=== PATIENT | female | born 1970 | race American Indian/Alaskan Native ===

== ENCOUNTER 2016-08-27 16:13 | Emergency (ER) | payer OTHER | END 2016-08-27 18:30 | disposition left against medical advice (07) | LOC: ED 16:13 | DX: R07.9 Chest pain, unspecified (principal); M54.6 Pain in thoracic spine; Z88.0 Allergy status to penicillin; Z53.21 Procedure and treatment not carried out due to patient leaving prior to being seen by health care provider ==

== ENCOUNTER 2018-01-22 14:33 | Inpatient (IN) | payer OTHER ==
[2018-01-22] MEDS ORDERED: ASPIRIN PO ONE (14:49)
[2018-01-22 15:39] LABS: Basophils # (Auto) 0.1 K/mm3 (0.0-0.1); Basophils % (Auto) 0.8 % (0.0-1.8); Eosinophils % (Auto) 0.6 % (0.0-4.3); Hematocrit 33.1 % (30.3-42.9); Hemoglobin 10.3 gm/dl (10.1-14.3); Lymphocytes # (Auto) 2.9 K/mm3 (1.2-5.4); Mean Corpuscular HGB Conc 31 % (30-34); Mean Corpuscular Volume 76 fl (79-97); Monocytes # (Auto) 0.5 K/mm3 (0.0-0.8); Monocytes % (Auto) 6.9 % (0.0-7.3); Platelet Count 480 K/mm3 (140-440); Red Blood Count 4.37 M/mm3 (3.65-5.03)
[2018-01-22 15:44] LABS: Mean Corpuscular Hemoglobin 24 pg (28-32); Red Cell Distribution Width 21.6 % (13.2-15.2)
--- NOTE | 2018-01-22 15:44 | Emergency Department Report ---
ED Chest Pain HPI - General Chief Complaint: Chest Pain Stated Complaint: CHEST PAIN AND BLOOD PRESSURE HIGH Source: patient Mode of arrival: Ambulatory Limitations: No Limitations - History of Present Illness Initial Comments: Mrs. Hunt is a 47-year-old female with history of hypertension. She has not had access to primary care in several years. Consequently she has not taking antihypertensive medication for 2 years. She has had chest pain over the last 6 days beginning on Tuesday while at work. Chest pain radiating to the left neck. She has bilateral hand tingling. She has blurry vision. Extensive family history of heart disease including father and grandmother. Denies palpitations. No shortness of breath. Episodes last approximately 4-5 minutes especially while she is working. Sharp in nature. The pain radiates to her left neck. She is evaluated at the [facility]. Systolic blood pressure approximately 170 mm HG. She has used home blood pressure monitoring cuff. Systolic blood pressures range from 140 to 170 mm Hg. S MD Complaint: chest pain -: days(s) (6) Onset: during rest, during exertion Pain Location: substernal, left chest Pain Radiation: neck Severity: moderate Quality: sharp Consistency: intermittent Improves With: rest Other Symptoms: other (bilateral hand tingling). denies: fever, syncope, rash, leg swelling Treatments Prior to Arrival: aspirin (earlier this week) - Related Data Previous Rx's Medication Instructions Recorded Last Taken Type Acetaminophen/Codeine 1 tab PO Q6H PRN #15 tab 08/23/14 Unknown Rx [Acetaminophen-Codeine #3 TAB] Butalb/Acetamin/Caff 50-325-40 1 each PO Q4H PRN #14 tablet 03/25/15 Unknown Rx [Fioricet] Meclizine [Antivert] 25 mg PO TID PRN #30 tablet 03/25/15 Unknown Rx Metoclopramide HCl [Reglan TAB] 5 mg PO TID PRN #10 tablet 03/25/15 Unknown Rx Allergies Allergy/AdvReac Type Severity Reaction Status Date / Time Penicillins Allergy Hives Verified 01/02/14 09:33 Heart Score - HEART Score History: Highly suspicious EKG: Normal Age: 45-65 Risk factors: 1-2 risk factors Troponin: < normal limit HEART Score: 4 ED Review of Systems ROS: Stated complaint: CHEST PAIN AND BLOOD PRESSURE HIGH Other details as noted in HPI Comment: All other systems reviewed and negative Constitutional: denies: fever, malaise ENT: denies: ear pain Respiratory: cough Cardiovascular: chest pain ED Past Medical Hx - Past Medical History Hx Hypertension: Yes - Surgical History Additional Surgical History: myomectomy - Family History Family history: CAD/SC (father grandmother) - Social History Smoking Status: Never Smoker Substance Use Type: None - Medications Home Medications: Home Medications Medication Instructions Recorded Confirmed Last Taken Type Acetaminophen/Codeine 1 tab PO Q6H PRN #15 tab 08/23/14 Unknown Rx [Acetaminophen-Codeine #3 TAB] Butalb/Acetamin/Caff 50-325-40 1 each PO Q4H PRN #14 tablet 03/25/15 Unknown Rx [Fioricet] Meclizine [Antivert] 25 mg PO TID PRN #30 tablet 03/25/15 Unknown Rx Metoclopramide HCl [Reglan TAB] 5 mg PO TID PRN #10 tablet 03/25/15 Unknown Rx ED Physical Exam - General Limitations: No Limitations General appearance: alert, in no apparent distress - Head Head exam: Present: atraumatic, normocephalic - Eye Eye exam: Present: normal appearance - ENT ENT exam: Present: mucous membranes moist - Neck Neck exam: Present: normal inspection - Respiratory Respiratory exam: Present: normal lung sounds bilaterally. Absent: respiratory distress, wheezes, rales, rhonchi - Cardiovascular Cardiovascular Exam: Present: regular rate, normal rhythm, normal heart sounds. Absent: systolic murmur, diastolic murmur, rubs, gallop - GI/Abdominal GI/Abdominal exam: Present: soft, normal bowel sounds. Absent: distended, tenderness, guarding, rebound - Extremities Exam Extremities exam: Present: normal inspection - Back Exam Back exam: Present: normal inspection - Neurological Exam Neurological exam: Present: alert, oriented X3 - Psychiatric Psychiatric exam: Present: normal affect, normal mood - Skin Skin exam: Present: warm, dry, intact, normal color. Absent: rash ED Course Vital Signs 01/22/18 14:45 Temperature 98.8 F Pulse Rate 78 Respiratory 18 Rate Blood Pressure 161/92 O2 Sat by Pulse 100 Oximetry SAVANNAH score - [place] Score Age > 65: (0) No Aspirin use within the Past 7 Days: (1) Yes 3 or more CAD Risk Factors: (0) No 2 or more Angina events in past 24 hrs: (1) Yes Known CAD with more than 50% Stenosis: (0) No Elevated Cardiac Markers: (0) No ST Deviation Greater than 0.5mm: (0) No SAVANNAH Score: 2 ED Medical Decision Making - Lab Data Result diagrams: 01/22/18 15:28 01/22/18 15:28 - EKG Data -: EKG Interpreted by Me EKG shows normal: sinus rhythm, axis, intervals, QRS complexes, ST-T waves Rate: normal - EKG Data 01/22/18 15:44 NSR nl rate nl axis nl intervals no ST-T signs of ischemia no ST elevation, obtained 1440 atrial enlargement evident with enlarged P waves in inferior leads no signs of pericarditis or signs of ischemia - Radiology Data Radiology results: report reviewed No acute process according to radiology report - Medical Decision Making Ms. Hunt has episodic chest pain concerning for ACS. She has a history of hypertension with family history of CAD. Dr. Neil hospitalist agreed to admit for cardiac evaluation. I reviewed lab and radiology results with patient. Critical care attestation.: If time is entered above; I have spent that time in minutes in the direct care of this critically ill patient, excluding procedure time. ED Disposition Clinical Impression: Acute coronary syndrome Disposition: OP ADMIT IP TO THIS HOSP Is pt being admited?: Yes Does the pt Need Aspirin: No Condition: Stable Time of Disposition: 16:25
[2018-01-22 15:52] LABS: BUN/Creatinine Ratio 25; Blood Urea Nitrogen 15 mg/dL (7-17); Calcium 9.6 mg/dL (8.4-10.2); Hemolysis Index 0
--- NOTE | 2018-01-22 16:16 | XRay Report ---
FINAL REPORT PROCEDURE: Chest. TECHNIQUE: PA and lateral views. HISTORY: Chest pain. COMPARISON: No prior studies are available for comparison. FINDINGS: The heart and mediastinum appear normal. The lungs are clear and well expanded. There are no pleural effusions. The soft tissues and regional skeleton are unremarkable. IMPRESSION: Normal study.
[2018-01-22] MEDS ORDERED: SODIUM CHLORIDE FLUSH SYRINGE 10 ML IV PRN ×2 (16:21)
[2018-01-22] MEDS ORDERED: ZOFRAN IV PRN (16:21)
[2018-01-22] MEDS ORDERED: TYLENOL PO PRN (16:21)
[2018-01-22] MEDS ORDERED: PROVENTIL IH PRN (16:21)
[2018-01-22] MEDS ORDERED: NITROSTAT SL PRN (16:21)
[2018-01-22] MEDS ORDERED: BABY ASPIRIN PO STA (16:21)
--- NOTE | 2018-01-22 16:21 | History and Physical Report ---
History of Present Illness Chief complaint: My chest hurts History of present illness: 47 YO Female with HTN, Medication Noncompliance, Positive Family History of Sudden Cardiac , presents to ED for evaluation. Pt states that she has experienced pain in her chest over the past 1 week. Pt states that she has experienced multiple episodes of pain that normally last approximately 5 minutes at a time. Pain is 6/10, substernal, with radiation to neck and left chest. Pt denies fever, chills, NVD, syncope, shortness of breath, BRBPR, unintentional weight loss, night sweats, recent ill contacts, trauma, unilateral leg swelling, calf pain, prolonged travel/immobility, productive cough, or recent ill contacts. Pt seen and evaluated in ED and found to have symptoms consistent with ACS as well as Diastolic CHF. Pt admitted to telemetry , cardiology consulted in ED. Past History Past Medical History: hypertension Past Surgical History: Other (myomectomy) Social history: single. denies: smoking, alcohol abuse, prescription drug abuse Family history: CAD, hypertension Medications and Allergies Allergies Allergy/AdvReac Type Severity Reaction Status Date / Time Penicillins Allergy Hives Verified 01/02/14 09:33 Home Medications Medication Instructions Recorded Confirmed Last Taken Type Acetaminophen/Codeine 1 tab PO Q6H PRN #15 tab 08/23/14 Unknown Rx [Acetaminophen-Codeine #3 TAB] Butalb/Acetamin/Caff 50-325-40 1 each PO Q4H PRN #14 tablet 03/25/15 Unknown Rx [Fioricet] Meclizine [Antivert] 25 mg PO TID PRN #30 tablet 03/25/15 Unknown Rx Metoclopramide HCl [Reglan TAB] 5 mg PO TID PRN #10 tablet 03/25/15 Unknown Rx Review of Systems Constitutional: no weight loss, no weight gain, no fever, no chills Ears, nose, mouth and throat: no ear pain, no ear discharge, no tinnitis, no decreased hearing, no nose pain, no nasal congestion, no nasal discharge Breasts: no change in shape, no swelling, no mass Cardiovascular: chest pain, no palpitations, no rapid/irregular heart beat, no edema, no syncope Respiratory: no cough, no cough with sputum, no excessive sputum, no hemoptysis , no shortness of breath Gastrointestinal: no nausea, no vomiting, no diarrhea, no constipation, no change in bowel habits Genitourinary Female: no pelvic pain, no flank pain, no menorrhagia, no dysuria , no urinary frequency, no urgency Menstruation: no currently menstrual, no premenarcheal, no post hysterectomy, no ammenorrhea, no ammenorrhea on BC, no period normal, no period heavy Rectal: no pain, no incontinence, no bleeding Musculoskeletal: no neck pain, no shooting arm pain, no arm numbness/tingling, no low back pain, no shooting leg pain, no leg numbness/tingling Integumentary: no rash, no pruritis, no redness, no sores, no wounds, no jaundice Neurological: no transient paralysis, no paralysis, no weakness, no parathesias , no numbness, no tingling Psychiatric: no memory loss, no change in sleep habits, no sleep disturbances, no insomnia, no hypersomnia, no change in appetite, no change in libido Endocrine: no cold intolerance, no heat intolerance, no polyphagia, no excessive thirst, no polydipsia, no polyuria, no nocturia, no excessive sweating Hematologic/Lymphatic: no easy bruising, no easy bleeding, no lymphadenopathy, no lymphedema Allergic/Immunologic: no urticaria, no allergic rhinitis, no wheezing, no persistent infections, no anaphylaxis, no angioedema Exam - Constitutional Vitals: Temp Pulse Resp BP Pulse Ox 98.8 F 78 18 161/92 100 01/22/18 14:45 01/22/18 14:45 01/22/18 14:45 01/22/18 14:45 01/22/18 14:45 General appearance: Present: mild distress - EENT Eyes: Present: PERRL ENT: hearing intact, clear oral mucosa - Neck Neck: Present: supple, normal ROM - Respiratory Respiratory effort: normal Respiratory: bilateral: CTA - Cardiovascular Heart Sounds: Present: S1 & S2. Absent: rub, click - Extremities Extremities: pulses symmetrical, No edema Peripheral Pulses: within normal limits - Abdominal General gastrointestinal: Present: soft, non-tender, non-distended, normal bowel sounds Female genitourinary: Present: normal - Integumentary Integumentary: Present: clear, warm, dry - Musculoskeletal Musculoskeletal: gait normal, strength equal bilaterally - Psychiatric Psychiatric: appropriate mood/affect, intact judgment & insight - Neurologic Neurologic: CNII-XII intact, moves all extremities Results - Labs CBC & Chem 7: 01/22/18 15:28 01/22/18 15:28 Labs: Abnormal lab results 01/22/18 01/22/18 Range/Units 15:28 15:28 MCV 76 L (79-97) fl MCH 24 L (28-32) pg RDW 21.6 H (13.2-15.2) % Plt Count 480 H (140-440) K/mm3 Lymph % (Auto) 37.0 H (13.4-35.0) % Sodium 136 L (137-145) mmol/L Chloride 96.1 L (98-107) mmol/L Creatinine 0.6 L (0.7-1.2) mg/dL Assessment and Plan - Patient Problems (1) Acute coronary syndrome Current Visit: Yes Status: Acute Plan to address problem: Admit to telemetry, serial cardiac enzymes, ekg, echo,stress test, cardiology consulted, lipid panel, morphine, supplemental oxygen, nitro, aspirin, (2) CHF (congestive heart failure) Current Visit: Yes Status: Acute Qualifiers: Heart failure type: diastolic Heart failure chronicity: acute Qualified Code(s): I50.31 - Acute diastolic (congestive) heart failure Plan to address problem: Admit to telemetry, echo, strict I/O, daily weight, monitor uop q shift, supplemental oxygen, afterload reduction, d dimer, bnp, chest x ray (3) HTN (hypertension) Current Visit: Yes Status: Acute Qualifiers: Hypertension type: essential hypertension Qualified Code(s): I10 - Essential (primary) hypertension Plan to address problem: monitor uop q shift (4) DVT prophylaxis Current Visit: Yes Status: Acute Plan to address problem: scd to ble while in bed
[2018-01-22] MEDS ORDERED: ANTIVERT PO PRN (17:00)
[2018-01-22] MEDS ORDERED: REGLAN PO ONE (17:00)
[2018-01-22 17:12] LABS: Chol/HDL Ratio 3.01 %
[2018-01-22] MEDS: TYLENOL #3 PO PRN (18:51)
[2018-01-22] MEDS: PEPCID PO SCH (20:59)
[2018-01-22] MEDS: SODIUM CHLORIDE FLUSH SYRINGE 10 ML IV SCH (21:09)
[2018-01-23] MEDS: REGLAN PO SCH ×2 (08:00→13:41)
[2018-01-23] MEDS: PEPCID PO SCH (12:38)
[2018-01-23] MEDS: TYLENOL #3 PO PRN (12:41)
[2018-01-23] MEDS: SODIUM CHLORIDE FLUSH SYRINGE 10 ML IV SCH (12:42)
--- NOTE | 2018-01-23 13:57 | Consultation ---
History of Present Illness Consult date: 01/23/18 Consult reason: chest pain History of present illness: Patient's a 47-year-old woman who presented with poorly characterized, atypical , nonexertional chest pain. Serial ECGs were normal sinus rhythm, normal ECG. She was admitted by the medical service, a thallium stress test was ordered, an echocardiogram was ordered, and cardiology consult was requested. Serial cardiac enzymes were normal. The patient underwent a exercise thallium stress test, during which she exercised for 7 minutes with no chest pain, no ST changes of ischemia. Thallium images were normal. Echocardiogram showed normal left ventricular systolic function, ejection fraction 55-60%, no significant valvular lesions. Past History Past Medical History: hypertension Past Surgical History: Other (myomectomy) Social history: single. denies: smoking, alcohol abuse, prescription drug abuse Family history: CAD, hypertension Medications and Allergies Allergies Allergy/AdvReac Type Severity Reaction Status Date / Time Penicillins Allergy Hives Verified 01/02/14 09:33 Home Medications Medication Instructions Recorded Confirmed Last Taken Type Acetaminophen/Codeine 1 tab PO Q6H PRN #15 tab 08/23/14 01/23/18 Unknown Rx [Acetaminophen-Codeine #3 TAB] Butalb/Acetamin/Caff 50-325-40 1 each PO Q4H PRN #14 tablet 03/25/15 01/23/18 Unknown Rx [Fioricet] Meclizine [Antivert] 25 mg PO TID PRN #30 tablet 03/25/15 01/23/18 Unknown Rx Metoclopramide HCl [Reglan TAB] 5 mg PO TID PRN #10 tablet 03/25/15 01/23/18 Unknown Rx Active Meds: Active Medications Acetaminophen (Tylenol) 650 mg PO Q4H PRN PRN Reason: Pain MILD(1-3)/Fever >100.5/ESTEBAN Acetaminophen/Codeine Phosphate (Tylenol #3) 1 tab PO Q6H PRN PRN Reason: Moderate Pain (4-6) Last Admin: 01/23/18 12:41 Dose: 1 tab Albuterol (Proventil) 2.5 mg IH Q4H PRN PRN Reason: Shortness Of Breath Famotidine (Pepcid) 10 mg PO BID ELAINA Last Admin: 01/23/18 12:38 Dose: 10 mg Meclizine HCl (Antivert) 25 mg PO Q8H PRN PRN Reason: Vertigo Metoclopramide HCl (Reglan) 5 mg PO TID [facility] Last Admin: 01/23/18 13:41 Dose: 5 mg Nitroglycerin (Nitrostat) 0.4 mg SL Q5M PRN PRN Reason: Chest Pain Ondansetron HCl (Zofran) 4 mg IV Q8H PRN PRN Reason: Nausea And Vomiting Sodium Chloride (Sodium Chloride Flush Syringe 10 Ml) 10 ml IV BID [facility] Last Admin: 01/23/18 12:42 Dose: 10 ml Sodium Chloride (Sodium Chloride Flush Syringe 10 Ml) 10 ml IV PRN PRN PRN Reason: LINE FLUSH Review of Systems Cardiovascular: chest pain, shortness of breath, no orthopnea, no palpitations, no rapid/irregular heart beat, no edema, no syncope, no lightheadedness Physical Examination Vital Signs Temp Pulse Resp BP Pulse Ox 98.8 F 78 18 161/92 100 01/22/18 14:45 01/22/18 14:45 01/22/18 14:45 01/22/18 14:45 01/22/18 14:45 General appearance: no acute distress HEENT: Positive: PERRL Neck: Positive: neck supple Cardiac: Positive: Reg Rate and Rhythm Lungs: Positive: clear to auscultation Neuro: Positive: Grossly Intact Abdomen: Positive: Soft Female genitourinary: deferred Skin: Positive: Clear Extremities: Absent: edema Results 01/22/18 15:28 01/22/18 15:28 Lipids 01/22/18 Range/Units 16:29 Triglycerides 83 (2-149) mg/dL Cholesterol 175 (50-199) mg/dL HDL Cholesterol 58 (40-59) mg/dL Cholesterol/HDL Ratio 3.01 % CBC 01/22/18 Range/Units 15:28 WBC 7.8 (4.5-11.0) K/mm3 RBC 4.37 (3.65-5.03) M/mm3 Hgb 10.3 (10.1-14.3) gm/dl Hct 33.1 (30.3-42.9) % Plt Count 480 H (140-440) K/mm3 Lymph # 2.9 (1.2-5.4) K/mm3 [place] # 0.5 (0.0-0.8) K/mm3 Eos # 0.0 (0.0-0.4) K/mm3 Baso # 0.1 (0.0-0.1) K/mm3 Comprehensive Metabolic Panel 01/22/18 Range/Units 15:28 Sodium 136 L (137-145) mmol/L Potassium 3.9 (3.6-5.0) mmol/L Chloride 96.1 L (98-107) mmol/L Carbon Dioxide 26 (22-30) mmol/L BUN 15 (7-17) mg/dL Creatinine 0.6 L (0.7-1.2) mg/dL Glucose 98 (65-100) mg/dL Calcium 9.6 (8.4-10.2) mg/dL EKG interpretations - Telemetry EKG Rhythm: Sinus Rhythm Assessment and Plan - Patient Problems (1) Atypical chest pain Current Visit: Yes Status: Acute Plan to address problem: Serial EKGs were normal. Serial cardiac enzymes were normal. The patient underwent a exercise thallium stress test, during which she exercised for 7 minutes with no chest pain, no ST changes of ischemia. Thallium images were normal. Echocardiogram showed normal left ventricular systolic function, ejection fraction 55-60%, no significant valvular lesions. Cardiac status is stable, okay to discharge from a cardiac standpoint.
--- NOTE | 2018-01-23 17:23 | Discharge Summary ---
Providers - Providers Date of Admission: 01/22/18 16:22 Date of discharge: 01/23/18 Attending physician: BOOKER CRUZ 01/22/18 Consult to Cardiac Rehabilitation [CONS] Routine Reason For Exam: Phase I 01/22/18 16:22 Consult to Cardiology [CONS] Routine Consulting Provider: LAURA PAREDES Reason For Exam: acs Primary care physician: HOME CARE PROVIDER Hospitalization Condition: Stable Hospital course: 47 YO Female with HTN, Medication Noncompliance, Positive Family History of Sudden Cardiac , presents to ED for evaluation. Pt states that she has experienced pain in her chest over the past 1 week. Serial EKGs were normal. Serial cardiac enzymes were normal. The patient underwent a exercise thallium stress test, during which she exercised for 7 minutes with no chest pain, no ST changes of ischemia. Thallium images were normal. Echocardiogram showed normal left ventricular systolic function, ejection fraction 55-60%, no significant valvular lesions. Cardiac status is stable, okay to discharge from a cardiac standpoint. Discharge diagnosis: Atypical chest pain HTN, benign Disposition: DC-01 TO HOME OR SELFCARE Time spent for discharge: 32 minutes Core Measure Documentation - Palliative Care Palliative Care/ Comfort Measures: Not Applicable - Core Measures Any of the following diagnoses?: none Exam - Constitutional Vitals: Temp Pulse Resp BP Pulse Ox 98.4 F 89 17 121/82 99 01/23/18 12:00 01/23/18 12:00 01/23/18 12:41 01/23/18 12:00 01/23/18 12:00 General appearance: Present: no acute distress, well-nourished - EENT Eyes: Present: PERRL ENT: hearing intact, clear oral mucosa - Neck Neck: Present: supple, normal ROM - Respiratory Respiratory effort: normal Respiratory: bilateral: CTA - Cardiovascular Heart Sounds: Present: S1 & S2. Absent: rub, click - Extremities Extremities: pulses symmetrical, No edema Peripheral Pulses: within normal limits - Abdominal General gastrointestinal: Present: soft, non-tender, non-distended, normal bowel sounds - Integumentary Integumentary: Present: clear, warm, dry - Musculoskeletal Musculoskeletal: gait normal, strength equal bilaterally - Psychiatric Psychiatric: appropriate mood/affect, intact judgment & insight - Neurologic Neurologic: CNII-XII intact, moves all extremities Plan Activity: advance as tolerated Weight Bearing Status: Weight Bear as Tolerated Diet: low fat, low salt Follow up with: PRIMARY CARE, [Primary Care Provider] - 3-5 Days Prescriptions: Pantoprazole [Protonix] 40 mg PO QDAY #30 tablet
[2018-01-23 17:36] VITALS: BP 103/49
--- NOTE | 2018-01-23 20:04 | Treadmill Report ---
THALLIUM STRESS TEST LEFT VENTRICLE: Left ventricular chamber size is within normal spread. Perfusion study demonstrates homogeneous uptake of the tracer in all segments, no significant perfusion defects noted. Gated analysis demonstrates normal left ventricular systolic function, ejection fraction greater than 70%. CONCLUSION: Normal myocardial perfusion study. JOB# [id number] CA/NTS
== END 2018-01-23 19:10 | disposition home or self-care (01) | DRG 313 ==
LOC: ED 14:33 → 4A 16:22
PROVIDERS: ADMIT Internal Medicine; ATTEND Internal Medicine
DX: R07.89 Other chest pain (principal); I50.30 Unspecified diastolic (congestive) heart failure; I11.0 Hypertensive heart disease with heart failure; Z91.14 Patient's other noncompliance with medication regimen; Z82.41 Family history of sudden cardiac death; Z82.49 Family history of ischemic heart disease and other diseases of the circulatory system; Z88.0 Allergy status to penicillin; Z79.899 Other long term (current) drug therapy
CPT/HCPCS: 36415; 71046; 78452; 80048; 80061; 83880; 84484; 85025; 85379; 93005; 93010; 93017; 93306; A9502

== ENCOUNTER 2018-02-22 13:56 | Emergency (ER) | payer OTHER ==
[2018-02-22 14:53] LABS: Bilirubin,Urine NEG (Negative); Blood,Urine NEG (Negative); Color,Urine Yellow (Yellow); Mucus,Urine FEW /HPF; Protein,Urine <15 mg/dL mg/dL (Negative); Urobilinogen,Urine < 2.0 mg/dL (<2.0)
[2018-02-22 14:56] LABS: HCG Qualitative,Urine Negative (Negative)
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
[2018-02-22] MEDS ORDERED: XYLOCAINE 1% MPF 5 mL INFILTRATI ONE (18:40)
[2018-02-22] MEDS ORDERED: ZITHROMAX PO ONE (18:40)
[2018-02-22] MEDS ORDERED: ROCEPHIN IM ONE (18:40)
[2018-02-22 20:08] VITALS: BP 160/89
== END 2018-02-22 19:50 | disposition home or self-care (01) ==
LOC: ED 13:56
DX: N93.9 Abnormal uterine and vaginal bleeding, unspecified (principal); R30.0 Dysuria; I10 Essential (primary) hypertension; Z88.0 Allergy status to penicillin
CPT/HCPCS: 81001; 81025; 87210; 87591; 96372; 99284; J0696

== ENCOUNTER 2019-09-25 21:00 | Emergency (ER) | payer SELFPAY ==
--- NOTE | 2019-09-25 23:05 | XRay Report ---
CHEST 1 VIEW INDICATION / CLINICAL INFORMATION: Chest Pain. COMPARISON: 01/22/2018 FINDINGS: SUPPORT DEVICES: None. HEART / MEDIASTINUM: No significant abnormality. LUNGS / PLEURA: No significant pulmonary or pleural abnormality.. No pneumothorax. ADDITIONAL FINDINGS: No significant additional findings. IMPRESSION: 1. No acute findings. Signer Name: Fam Moya MD Signed: 09/25/2019 11:00 PM Workstation Name: [id number]
[2019-09-26 00:18] LABS: Hematocrit 30.2 % (30.3-42.9); Hemoglobin 9.2 gm/dl (10.1-14.3); Mean Corpuscular HGB Conc 31 % (30-34); Mean Corpuscular Volume 74 fl (79-97); Platelet Count 388 K/mm3 (140-440); Red Blood Count 4.07 M/mm3 (3.65-5.03)
[2019-09-26 00:23] LABS: Red Cell Distribution Width 26.7 % (13.2-15.2)
--- NOTE | 2019-09-26 00:23 | Emergency Department Report ---
ED Chest Pain HPI - General Chief Complaint: Chest Pain Stated Complaint: CP/BODY ACHES Time Seen by Provider: 09/26/19 00:13 Source: patient Mode of arrival: Ambulatory Limitations: No Limitations - History of Present Illness Initial Comments: Patient is 49 years old female with no significant past medical history except for hypertension. Patient presented to the ER complaining of chest pain for the last 3 days. Patient described her pain as sharp and dull aching, substernal with radiation to the right chest and right upper extremity. Patient denies any left sided chest pain. She also denies any shortness of breath, fever or chills. No cough. MD Complaint: chest pain -: days(s) (3) Onset: during rest Pain Location: substernal, right chest Pain Radiation: RUE Severity: moderate Severity scale (0 -10): 5 Quality: sharp, dull Worsens With: nothing - Related Data Previous Rx's Medication Instructions Recorded Last Taken Type Butalb/Acetamin/Caff 50-325-40 1 each PO Q4H PRN #14 tablet 03/25/15 Unknown Rx [Fioricet 50-325-40] Meclizine [Antivert] 25 mg PO TID PRN #30 tablet 03/25/15 Unknown Rx Metoclopramide HCl [Reglan TAB] 5 mg PO TID PRN #10 tablet 03/25/15 Unknown Rx Pantoprazole [Protonix] 40 mg PO QDAY #30 tablet 01/23/18 Unknown Rx metroNIDAZOLE [Metronidazole] 500 mg PO BID #14 tablet 07/14/18 Unknown Rx Allergies Allergy/AdvReac Type Severity Reaction Status Date / Time Penicillins Allergy Hives Verified 01/02/14 09:33 Heart Score - HEART Score History: Slightly suspicious EKG: Normal Age: 45-65 Risk factors: 1-2 risk factors Troponin: < normal limit HEART Score: 2 - Critical Actions Critical Actions: 0-3 pts:0.9-1.7%risk of adverse cardiac event.Candidate for d ischarge ED Review of Systems ROS: Stated complaint: CP/BODY ACHES Other details as noted in HPI Comment: All other systems reviewed and negative Constitutional: denies: chills, fever Respiratory: denies: cough, shortness of breath, SOB with exertion, SOB at rest Cardiovascular: chest pain. denies: palpitations, dyspnea on exertion, orthopnea Gastrointestinal: denies: abdominal pain, nausea, vomiting Musculoskeletal: denies: back pain Neurological: denies: headache, weakness, numbness, paresthesias, confusion ED Past Medical Hx - Past Medical History Previous Medical History?: Yes Hx Hypertension: Yes - Surgical History Past Surgical History?: Yes Additional Surgical History: myomectomy - Social History Smoking Status: Never Smoker Substance Use Type: None - Medications Home Medications: Home Medications Medication Instructions Recorded Confirmed Last Taken Type Butalb/Acetamin/Caff 50-325-40 1 each PO Q4H PRN #14 tablet 03/25/15 01/23/18 Unknown Rx [Fioricet 50-325-40] Meclizine [Antivert] 25 mg PO TID PRN #30 tablet 03/25/15 01/23/18 Unknown Rx Metoclopramide HCl [Reglan TAB] 5 mg PO TID PRN #10 tablet 03/25/15 01/23/18 Unknown Rx Pantoprazole [Protonix] 40 mg PO QDAY #30 tablet 01/23/18 Unknown Rx metroNIDAZOLE [Metronidazole] 500 mg PO BID #14 tablet 07/14/18 Unknown Rx ED Physical Exam - General Limitations: No Limitations General appearance: alert, in no apparent distress - Head Head exam: Present: atraumatic, normocephalic, normal inspection - Eye Eye exam: Present: normal appearance, PERRL - ENT ENT exam: Present: normal exam, normal orophraynx, mucous membranes moist - Neck Neck exam: Present: normal inspection, full ROM. Absent: tenderness, meningismus, lymphadenopathy, thyromegaly - Respiratory Respiratory exam: Present: normal lung sounds bilaterally - Cardiovascular Cardiovascular Exam: Present: regular rate, normal rhythm, normal heart sounds - GI/Abdominal GI/Abdominal exam: Present: soft, normal bowel sounds. Absent: distended, tenderness, guarding, rebound, rigid, organomegaly, mass, bruit, pulsatile mass, hernia - Extremities Exam Extremities exam: Present: normal inspection, full ROM, normal capillary refill. Absent: pedal edema, calf tenderness - Back Exam Back exam: Present: normal inspection, full ROM. Absent: CVA tenderness (R), CVA tenderness (L) - Neurological Exam Neurological exam: Present: alert, oriented X3, CN II-XII intact, normal gait, reflexes normal - Psychiatric Psychiatric exam: Present: normal mood - Skin Skin exam: Present: warm, intact, normal color ED Course Vital Signs 09/25/19 22:17 Temperature 98.8 F Pulse Rate 84 Respiratory 18 Rate Blood Pressure 159/101 O2 Sat by Pulse 100 Oximetry SAVANNAH score - [place] Score Age > 65: (0) No Aspirin use within the Past 7 Days: (1) Yes 3 or more CAD Risk Factors: (0) No 2 or more Angina events in past 24 hrs: (1) Yes Known CAD with more than 50% Stenosis: (0) No Elevated Cardiac Markers: (0) No ST Deviation Greater than 0.5mm: (0) No SAVANNAH Score: 2 ED Medical Decision Making - Lab Data Result diagrams: 09/25/19 23:41 09/25/19 23:41 - EKG Data -: EKG Interpreted by Me EKG shows normal: sinus rhythm Rate: normal - EKG Data Interpretation: no acute changes - Radiology Data Radiology results: report reviewed - Medical Decision Making Patient is 49 years old female with no significant past medical history except for hypertension. Patient presented to the ER complaining of chest pain for the last 3 days. Patient described her pain as sharp and dull aching, substernal with radiation to the right chest and right upper extremity. Patient denies any left sided chest pain. She also denies any shortness of breath, fever or chil ls. No cough. Patient stated that she is feeling much better after ibuprofen. EKG showed no ST elevation or depression. Chest x-ray is unremarkable. Labs reviewed and is unremarkable including 2 sets of troponin. D-dimer is negative. Patient advised to follow-up with her primary care physician in the next 2 to 3 days for outpatient cardiac work-up and advised to return to the ER if she develop any new symptoms. Critical care attestation.: If time is entered above; I have spent that time in minutes in the direct care of this critically ill patient, excluding procedure time. ED Disposition Clinical Impression: Chest pain Disposition: DC-01 TO HOME OR SELFCARE Is pt being admited?: No Condition: Stable Instructions: Chest Pain (ED), Costochondritis (ED) Referrals: PRIMARY CARE, [Primary Care Provider] - 3-5 Days
[2019-09-26 00:33] LABS: BUN/Creatinine Ratio 16; Blood Urea Nitrogen 13 mg/dL (7-17); Calcium 10.1 mg/dL (8.4-10.2); Hemolysis Index 4
[2019-09-26] MEDS ORDERED: IBUPROFEN 600 MG TAB PO ONE (01:07)
[2019-09-26 03:58] LABS: Basophils % (Manual) 0 % (0.0-1.8); Eosinophils % (Manual) 0 % (0.0-4.3); Total Cells Counted 100
[2019-09-26 03:59] LABS: Anisocytosis 2+; Hypochromasia 1+; Ovalocytes Few; Target Cells Few
[2019-09-26 04:00] LABS: Macrocytosis Few; Platelet Estimate Consistent w Auto; Schistocytes Rare
[2019-09-26 04:15] VITALS: BP 138/74
== END 2019-09-26 02:45 | disposition home or self-care (01) ==
LOC: ED 21:00
DX: R07.89 Other chest pain (principal); I10 Essential (primary) hypertension; Z98.890 Other specified postprocedural states; Z79.899 Other long term (current) drug therapy; Z88.0 Allergy status to penicillin
CPT/HCPCS: 36415; 71045; 80048; 84484; 85007; 85025; 85379; 93005; 93010

== ENCOUNTER 2021-07-16 17:42 | Emergency (ER) | payer SELFPAY ==
[2021-07-16 17:47] VITALS: BP 172/105
[2021-07-16] MEDS ORDERED: KETOROLAC 30 MG/1 ML INJ IV ONE (18:40)
--- NOTE | 2021-07-16 19:25 | XRay Report ---
CHEST 2 VIEWS INDICATION / CLINICAL INFORMATION: chest pain. COMPARISON: 09/25/2019 FINDINGS: SUPPORT DEVICES: None. HEART / MEDIASTINUM: No significant abnormality. LUNGS / PLEURA: No significant pulmonary or pleural abnormality. No pneumothorax. ADDITIONAL FINDINGS: No significant additional findings. IMPRESSION: 1. No acute findings. Signer Name: Raymond Bowser MD Signed: 07/16/2021 7:21 PM Workstation Name: [id number]
[2021-07-16 20:02] LABS: Basophils % (Auto) 0.5 % (0.0-1.8); Eosinophils # (Auto) 0.5 K/mm3 (0.0-0.4); Eosinophils % (Auto) 5.6 % (0.0-4.3); Hemoglobin 11.1 gm/dl (10.1-14.3); Lymphocytes # (Auto) 2.4 K/mm3 (1.2-5.4); Lymphocytes % (Auto) 28.7 % (13.4-35.0); Mean Corpuscular HGB Conc 31 % (30-34); Mean Corpuscular Volume 78 fl (79-97); Monocytes # (Auto) 0.7 K/mm3 (0.0-0.8); Monocytes % (Auto) 7.9 % (0.0-7.3); Platelet Count 425 K/mm3 (140-440); Red Blood Count 4.59 M/mm3 (3.65-5.03)
[2021-07-16 20:09] LABS: Red Cell Distribution Width 21.5 % (13.2-15.2)
[2021-07-16 20:26] LABS: Blood Urea Nitrogen 14 mg/dL (7-17); Calcium 9.1 mg/dL (8.4-10.2); Hemolysis Index 6
[2021-07-16 20:27] LABS: BUN/Creatinine Ratio 20
--- NOTE | 2021-07-16 21:00 | Emergency Department Report ---
ED Chest Pain HPI - General Chief Complaint: Chest Pain Stated Complaint: CP Time Seen by Provider: 07/16/21 18:32 Source: patient Mode of arrival: Ambulatory Limitations: No Limitations - History of Present Illness Initial Comments: Patient is a 50-year-old F [place] female with HTN who is presenting with chest pain. Patient states that pain has been constant for the last 3 days. Progressively worsening. Is worse when she is taking deep breaths. No exertional component. Denies any current cough cold congestion fevers or chills. States 2 weeks ago she did have 2-day period where she had some mild body aches and a potential fever. Pain estimated at 6 out of 10 in severity. Severity scale (0 -10): 2 - Related Data Previous Rx's Medication Instructions Recorded Last Taken Type Butalb/Acetamin/Caff 50-325-40 1 each PO Q4H PRN #14 tablet 03/25/15 Unknown Rx [Fioricet 50-325-40] Meclizine [Antivert] 25 mg PO TID PRN #30 tablet 03/25/15 Unknown Rx Metoclopramide HCl [Reglan TAB] 5 mg PO TID PRN #10 tablet 03/25/15 Unknown Rx Pantoprazole [Protonix] 40 mg PO QDAY #30 tablet 01/23/18 Unknown Rx metroNIDAZOLE [Metronidazole] 500 mg PO BID #14 tablet 07/14/18 Unknown Rx Cyclobenzaprine HCl [Flexeril 5 MG 5 mg PO TID PRN #21 tab 09/26/19 Unknown Rx TAB] Naproxen [Naprosyn] 500 mg PO BID #14 tablet 09/26/19 Unknown Rx predniSONE [Deltasone] 50 mg PO QDAY #5 tab 07/16/21 Unknown Rx predniSONE [Deltasone] 50 mg PO QDAY #5 tab 07/16/21 Unknown Rx traMADoL [Ultram] 50 mg PO Q6HR PRN #12 tablet 07/16/21 Unknown Rx traMADoL [Ultram] 50 mg PO Q6HR PRN #12 tablet 07/16/21 Unknown Rx Allergies Allergy/AdvReac Type Severity Reaction Status Date / Time Penicillins Allergy Hives Verified 01/02/14 09:33 Heart Score - HEART Score History: Slightly suspicious EKG: Normal Age: 45-65 Risk factors: 1-2 risk factors Troponin: > 3x normal limit HEART Score: 4 - EKG Read Time Time EKG Completed: 17:54 EKG Read Time: 17:58 ED Review of Systems ROS: Stated complaint: CP Other details as noted in HPI Comment: All other systems reviewed and negative ED Past Medical Hx - Past Medical History Hx Hypertension: Yes - Surgical History Additional Surgical History: myomectomy - Social History Smoking Status: Never Smoker Substance Use Type: None - Medications Home Medications: Home Medications Medication Instructions Recorded Confirmed Last Taken Type Butalb/Acetamin/Caff 50-325-40 1 each PO Q4H PRN #14 tablet 03/25/15 01/23/18 Unknown Rx [Fioricet 50-325-40] Meclizine [Antivert] 25 mg PO TID PRN #30 tablet 03/25/15 01/23/18 Unknown Rx Metoclopramide HCl [Reglan TAB] 5 mg PO TID PRN #10 tablet 03/25/15 01/23/18 Unknown Rx Pantoprazole [Protonix] 40 mg PO QDAY #30 tablet 01/23/18 Unknown Rx metroNIDAZOLE [Metronidazole] 500 mg PO BID #14 tablet 07/14/18 Unknown Rx Cyclobenzaprine HCl [Flexeril 5 MG 5 mg PO TID PRN #21 tab 09/26/19 Unknown Rx TAB] Naproxen [Naprosyn] 500 mg PO BID #14 tablet 09/26/19 Unknown Rx predniSONE [Deltasone] 50 mg PO QDAY #5 tab 07/16/21 Unknown Rx predniSONE [Deltasone] 50 mg PO QDAY #5 tab 07/16/21 Unknown Rx traMADoL [Ultram] 50 mg PO Q6HR PRN #12 tablet 07/16/21 Unknown Rx traMADoL [Ultram] 50 mg PO Q6HR PRN #12 tablet 07/16/21 Unknown Rx ED Physical Exam - General Limitations: No Limitations General appearance: alert, in no apparent distress - Head Head exam: Present: atraumatic, normocephalic - Eye Eye exam: Present: normal appearance, PERRL, EOMI - ENT ENT exam: Present: mucous membranes moist - Neck Neck exam: Present: normal inspection - Respiratory Respiratory exam: Present: normal lung sounds bilaterally. Absent: respiratory distress, wheezes, rales, rhonchi - Cardiovascular Cardiovascular Exam: Present: regular rate, normal rhythm. Absent: systolic murmur, diastolic murmur, rubs, gallop - GI/Abdominal GI/Abdominal exam: Present: soft, normal bowel sounds - Extremities Exam Extremities exam: Present: normal inspection - Back Exam Back exam: Present: normal inspection - Neurological Exam Neurological exam: Present: alert, oriented X3 - Psychiatric Psychiatric exam: Present: normal affect, normal mood - Skin Skin exam: Present: warm, dry, intact, normal color. Absent: rash ED Course Vital Signs 07/16/21 17:43 Temperature 98.5 F Pulse Rate 74 Respiratory 18 Rate Blood Pressure 172/105 [Right] O2 Sat by Pulse 100 Oximetry PAWAN score - Pawan Score Age > 65: (0) No Aspirin use within the Past 7 Days: (1) Yes 3 or more CAD Risk Factors: (0) No 2 or more Angina events in past 24 hrs: (1) Yes Known CAD with more than 50% Stenosis: (0) No Elevated Cardiac Markers: (0) No ST Deviation Greater than 0.5mm: (0) No PAWAN Score: 2 ED Medical Decision Making - Lab Data Result diagrams: 07/16/21 19:35 07/16/21 19:35 Lab Results 07/16/21 07/16/21 07/16/21 Range/Units 19:35 19:35 19:35 WBC 8.2 (4.5-11.0) K/mm3 RBC 4.59 (3.65-5.03) M/mm3 Hgb 11.1 (10.1-14.3) gm/dl Hct 36.0 (30.3-42.9) % MCV 78 L (79-97) fl MCH 24 L (28-32) pg MCHC 31 (30-34) % RDW 21.5 H (13.2-15.2) % Plt Count 425 (140-440) K/mm3 Lymph % (Auto) 28.7 (13.4-35.0) % [place] % (Auto) 7.9 H (0.0-7.3) % Eos % (Auto) 5.6 H (0.0-4.3) % Baso % (Auto) 0.5 (0.0-1.8) % Lymph # (Auto) 2.4 (1.2-5.4) K/mm3 [place] # (Auto) 0.7 (0.0-0.8) K/mm3 Eos # (Auto) 0.5 H (0.0-0.4) K/mm3 Baso # (Auto) 0.0 (0.0-0.1) K/mm3 Seg Neutrophils % 57.3 (40.0-70.0) % Seg Neutrophils # 4.7 (1.8-7.7) K/mm3 D-Dimer 187.64 (0-234) ng/mlDDU Sodium 138 (137-145) mmol/L Potassium 4.6 (3.6-5.0) mmol/L Chloride 101.9 (98-107) mmol/L Carbon Dioxide 23 (22-30) mmol/L Anion Gap 18 mmol/L BUN 14 (7-17) mg/dL Creatinine 0.7 (0.6-1.2) mg/dL Estimated GFR > 60 ml/min BUN/Creatinine Ratio 20 % Glucose 90 (65-100) mg/dL Calcium 9.1 (8.4-10.2) mg/dL Troponin T < 0.010 (0.00-0.029) ng/mL - EKG Data -: EKG Interpreted by Wy - EKG Data 07/16/21 21:06 EKG shows normal sinus rhythm with a rate of 73. [place] normal intervals normal. No ST segment elevations or depressions. Time interpretation 4884 - Radiology Data [facility] [address] [place] [address] XRay Report Signed Patient: AAYUSH DOS SANTOS MR#: [id number] : 1970 Acct:[id number] Age/Sex: 50 / F ADM Date: 07/16/21 Loc: ED Attending Dr: Ordering Physician: TIM BAÑUELOS MD Date of Service: 07/16/21 Procedure(s): XR chest routine 2V Accession Number(s): [id number] cc: TIM BAÑUELOS MD Fluoro Time In Minutes: CHEST 2 VIEWS INDICATION / CLINICAL INFORMATION: chest pain. COMPARISON: 09/25/2019 FINDINGS: SUPPORT DEVICES: None. HEART / MEDIASTINUM: No significant abnormality. LUNGS / PLEURA: No significant pulmonary or pleural abnormality. No pneumothorax. ADDITIONAL FINDINGS: No significant additional findings. IMPRESSION: 1. No acute findings. Signer Name: Raymond Bowser MD Signed: 07/16/2021 7:21 PM Workstation Name: [email or web address] - Medical Decision Making Patient is a 50-year-old F [place] female who is presenting with pleuritic chest pain. EKG troponin and D-dimer all within normal limits. Chest x-ray is normal. Is likely the patient has a post viral syndrome pleurisy. Patient be started on a short course of steroids and medication for symptomatic relief and be discharged home. Critical care attestation.: If time is entered above; I have spent that time in minutes in the direct care of this critically ill patient, excluding procedure time. ED Disposition Clinical Impression: Atypical chest pain, Pleurisy Disposition: 01 HOME / SELF CARE / HOMELESS Is pt being admited?: No Does the pt Need Aspirin: No Condition: Stable Instructions: Nonspecific Chest Pain, Adult, Pleurisy Referrals: DENTON WALKER MD [Staff Physician] - 3-5 Days Time of Disposition: 20:58
--- NOTE | 2021-07-17 12:58 | Electrocardiograph Report ---
[facility] Test Date: 2021-07-16 Test Time: 17:54:00 Pat Name: AAYUSH DOS SANTOS Department: Room: Gender: F [employer] Examiner: ROBBIE : 1970 Requested By: TIM BAÑUELOS Order Number: [id number] Reading MD: Kenroy Dang Measurements Intervals [place] Rate: 73 P: 71 GA: 161 QRS: 43 QRSD: 87 T: 56 QT: 415 QTc: 456 Interpretive Statements Sinus rhythm Probable left atrial enlargement No previous ECG available for comparison Electronically Signed On 07-17-2021 12:57:54 EST by Kenroy Dang
== END 2021-07-16 23:03 | disposition home or self-care (01) ==
LOC: ED 17:42
DX: R07.89 Other chest pain (principal); I10 Essential (primary) hypertension; Z79.899 Other long term (current) drug therapy; Z88.0 Allergy status to penicillin
CPT/HCPCS: 36415; 71046; 80048; 84484; 85025; 85379; 93005; 96374; 99284; J1885